=== PATIENT | female | born 1960 | race Caucasian/White ===

== ENCOUNTER 2024-12-23 12:22 | Outpatient (CLI) | payer OTHER, SELFPAY ==
--- NOTE | ~2024-12-23 | CT_ITS ---
CT Scan of the Chest without Contrast: Clinical Indication: Lung cancer screening, nicotine dependence Technique: Contiguous sections were acquired throughout the chest without intravenous contrast. Dose reduction technique was used on this scan by utilizing automated exposure control and iterative recon struction technique. The dose-length product (DLP) was 96.49 mGy-cm. Findings: There is no evidence of any significant mediastinal, hilar or axillary lymphadenopathy. The mediastin al soft tissues appear normal. There is no evidence of pleural or pericardial effusion. The lungs are clear. No pulmonary nodules or infiltrates are noted. Images through the upper abdomen reveal no abnormalities. Impression: Lung RADS 1: Negative. 12 month follow-up screening CT advised. Reviewed, dictated and finalized at location . Impression: Lung RADS 1: Negative. 12 month follow-up screening CT advised.
--- OUTSIDE RECORDS SUMMARY | 2024-12-23 13:43 | XMS_ITS | Encounter Summary ---
Author Organization [facility] Address [address] [place] [address] Phone Care Team Providers Care Director Of Volunteer Services Name Role Phone Ismael Nettles MD Primary Care Provider Jo Lorenzo NP Primary Care Provider [phone] Ismael Nettles MD Primary Care Provider [phone] Jo Lorenzo NP Primary Care Provider [phone] Encounter Details Date Type Department Care Team (Late st Contact Info) Description 10/09/2017 Orders Only [facility] ProviderYenni MD [address] [place] [address] Social History Tobacco Use Types Packs/Day Years Used Date Smoking Tobacco: Heavy Smoker Smokeless Tobacco: Never Comments:Smoking History Pac ks/day: 10 Cigarettes Alcohol Use Standard Drinks/Week Comments No 0 (1 standard drink = 0.6 oz pur e alcohol) Comments Unknown Sex and Gender Information Value Date Recorded Sex Assigned at Not on file Legal Sex Female 3:40 PM CERTIFIED MEDICAL TECHNICIAN Gender Identity Not on file Sexual Orientation Not on file documented as of this encounter Plan of Treatment Not on file documented as of this encounter Procedures Procedure Name Priority Date/Time Associated Diagnosis Comments DISCHARGE LABORATORY CUMULATIVE REPORT 10/09/2017 12:00 AM CERTIFIED MEDICAL TECHNICIAN documented in this encounter Results * DISCHARGE LABORATORY CUMULATIVE REPORT (10/09/2017 12:00 AM CERTIFIED MEDICAL TECHNICIAN) Narrative 10/09/2017 12:00 AM CERTIFIED MEDICAL TECHNICIAN Ordered by an unspecified provider. us Historical Provider LAB BLOOD ORDERABLES Dennise l Result documented in this encounter Visit Diagnoses Not on filedocumented in this encounter Care Teams Director Of Volunteer Services Relationship Specialty Start Date End Date Ismael Nettles MD PCP - General 02/29/12 10/15/18 Jo Lorenzo COMPRESSED GAS TESTER PCP - General Family Medicine 10/16/18 02/16/19 Ismael Nettles MD PCP - General 02/17/19 05/26/19 Jo Lorenzo NP PCP - General Family Medicine 05/27/19 documented as of this encounter
--- OUTSIDE RECORDS SUMMARY | 2024-12-23 13:43 | XMS_ITS | Referral Summary ---
Author Organization [facility] Address [address] [place] [address] Care Team Providers Care Beauty Culture Teacher Name Role Phone Jo Lorenzo NP Primary Care Provider [phone] Allergies No known active allergies Medications comp.quinton sheldon,addie,[facility] As directed 1 each 07/29/2018 Active albuterol (ProAir RespiClick) 90 mcg/actuation inhaler Inhale 2 puffs every 4 (four) hours as needed (shortness of breath) 1 each 1 11/02/2020 Active Symbicort 160-4.5 mcg/actuation inhaler Inhale 2 puffs 2 (two) times a day Rinse mouth with water after use. Do not swallow. 1 Inhaler 1 12/29/2020 Active Active Problems Problem Noted Date Diagnosed Date Elevated blood pressure read ing in office without diagnosis of hypertension 11/02/2020 Assessment & Plan (11/02/2020 3:08 PM CHIEF MECHANICAL ENGINEER): I encouraged her to buy a home blood pressure cuff. Will have her return in 2 months for recheck on blood pressure. Labs as ordered Annual physical exam 11/02/2020 Assessment & Plan (11/02/2020 3:13 PM CHIEF MECHANICAL ENGINEER): -Recommended: Healthy diet. Avoiding junk food/fast food. -30 minutes of exercise most days of the week. Increase to 45 minutes for weight loss. Immunizations: Recommended tdap lose weight, increase physical activity, bring BP log to office visit, continue present plan, routine labs ordered, call if any problems Follow-up in 2 months. Left flank mass 09/04/2019 Overview (11/02/2020): Benign- opted not to have surgery Assessment & Plan (09/04/2019 3:36 PM CHIEF MECHANICAL ENGINEER): Likely lipoma, due to size and length of time we will obtain imaging rule out sarcoma. Will call with imaging results and recommendations. Patient agrees to treatment plan. Spider varicose veins 07/29/2018 Mixed hyperlipidemia 06/05/2018 Assessment & Plan (11/02/2020 3:10 PM CHIEF MECHANICAL ENGINEER): Lipid abnormalities are stable, reviewed previous lipid levels in [facility]. Pharmacotherapy as ordered. Order for lipid panel was given today to be obtained. Pt voiced understanding of lab drawn and continuation of current medication regimen. Assessment & Plan (02/17/2019 8:50 AM CDT): Lipid abnormalities are unchanged. Lipid-lowering therapy was not prescribed due to diet controlled. Lipids will be reassessed in 1 year. Assessment & Plan (08/19/2018 7:42 AM CHIEF MECHANICAL ENGINEER): Recheck lipid panel in 6 months with f/u Assessment & Plan (06/05/2018 12:03 PM CDT): Lipid abnormalities are unchanged. Lipid-lowering therapy was not prescribed due to pt did not continue treatment. Lipids will be reassessed order given today. Chronic obstructive pulmonary disease 02/28/2014 Overview (01/17/2017): COPD (chronic obstructive pulmonary disease) Assessment & Plan (11/02/2020 3:08 PM CHIEF MECHANICAL ENGINEER): Stable. Doing well with Symbicort daily. Does not have to use albuterol very often. However we have never had a pulmonary function test on her. Will order pulmonary function test. She is going to try to get [facility] at [facility] Assessment & Plan (02/17/2019 8:52 AM CDT): COPD is unchanged. Discussed monitoring symptoms and use of quick-relief medications and contacting us early in the course of exacerbations. Warning signs of respiratory distress were reviewed with the patient. Continue current medications. Assessment & Plan (06/05/2018 12:04 PM CDT): COPD is improving with treatment. Discussed monitoring symptoms and use of quick-relief medications and contacting us early in the course of exacerbations. Continue current medications. Follow up in 6 month, or sooner should new symptoms or problems arise. Tobacco dependence syndrome 02/28/2014 Overview (01/18/2017): Tobacco abuse Assessment & Plan (11/02/2020 3:01 PM CHIEF MECHANICAL ENGINEER): Smokes 6 cigarettes/day x 40 years Assessment & Plan (09/27/2018 2:00 PM CHIEF MECHANICAL ENGINEER): Tobacco use is unchanged. Smoking cessation counseling was provided. Tobacco use will be reassessed at the next regular appointment. Resolved Problems Problem Noted Date Diagnosed Date Resolved Date Pap smear for cervical cancer screening 08/30/2019 11/02/2020 Assessment & Plan (08/30/2019 7:29 AM CHIEF MECHANICAL ENGINEER): Normal female exam: -Pap smear every .5 -Influenza vaccine every year -F/u in 1 year for physical or sooner if needed -Mammogram: normal--routine follow-up in 12 months General Recommendations: -Healthy, low fat diet. Avoiding junk food/fast food. -30 minutes of exercise most days of the week. Increase to 45 minutes for weight loss. Encounter for screening colonoscopy 02/24/2019 11/02/2020 Overview (02/24/2019): Added automatically from request for surgery [id number] Colon cancer screening 10/22/201811/02 Assessment & Plan (10/22/2018 3:53 PM CHIEF MECHANICAL ENGINEER): She talked to her insurance and they recommended colonoscopy over cologuard due to fact that if cologuard was positive, then coverage for colonoscopy would not be as good. Referral given Hot flashes due to menopause 10/22/2018 11/02/2020 Assessment & Plan (02/17/2019 8:51 AM CDT): Had some improvement with effexor. Wants to restart it. Assessment & Plan (10/22/2018 3:52 PM CHIEF MECHANICAL ENGINEER): She smokes. Not a candidate for oral hormones. Discussed trying effexor. discussed medication, side effects and usage. Will start at lower dosage of 37.5mg daily. She has f/u scheduled in February. Call for refills. Consider increase in dosage if needed. Acute cystitis with hematuria 09/27/2018 02/17/2019 Assessment & Plan (10/22/2018 3:50 PM CHIEF MECHANICAL ENGINEER): Symptoms have now resolved. Urine dip today shows no protein. Trace of hemolyzed blood. Reassurance given. Assessment & Plan (09/27/2018 11:29 AM CHIEF MECHANICAL ENGINEER): Complete antibiotic as prescribed Do not hold your urine. Urinate as soon as you feel the need to go Drink plenty of water and fluids. Limit alcohol, caffeine, and citrus juices- They will irritate the bladder Wipe front to back & wear cotton underwear Try emptying your bladder before and after having sexual intercourse Follow up with your PCP if you are not getting better For recurrent Urinary tract infections: UTI prevention strategies including use of vaginal estrogen(if postmenopausal) , Vitamin C supplementation,cranberry tablet supplementation, voiding after intercourse, scheduled voiding every 2-3 hours, and antibiotic suppression. If you have severe back, flank, or groin pain with nausea/vomiting or are unable to get comfortable from the pain, please go to ER for further treatment Tylenol/Motrin for pain Neuropathy of left lower extremity 07/29/2018 02/17/2019 Assessment & Plan (08/19/2018 7:42 AM CHIEF MECHANICAL ENGINEER): Improving with gabapentin. I renewed meloxicam, but told her to try to take them prn, not daily. Assessment & Plan (07/30/2018 8:53 AM CDT): Described as pins and needles and is in one area, not entire leg. Will treat for neuropathy with gabapentin. Differential includes claudication/ PAD. Ordered YOLI's as well. Discussed with Dr. Quintanilla who recommended we consider platel. Will see results of YOLI's and how she does on gabapentin and consider platel. Also recommended compression stockings to patient. Ingrown nail of great toe of left foot 06/05/2018 02/17/2019 Assessment & Plan (06/05/2018 10:49 AM CDT): Refer to podiatry [place] [facility] 06/05/2018 11/02/2020 Assessment & Plan (06/05/2018 10:49 AM CDT): Refer to podiatry for treatment Abnormal glucose level 05/01/201611/02 Overview (01/18/2017): Abnormal glucose level Acute bronchitis 12/01/2014 07/18/2017 Overview (01/18/2017): Acute bronchitis Immunizations Immunization Administration Dates Next Due Influenza, Split 11/01/2012 Influenza, Unspecified 11/02/2020(Deferred: Lizy ent Refused) Pneumococcal Polysaccharide PPV23 07/12/2016, ZOSTER LIVE 11/25/2018 ZOSTER Recombinant 03/03/2019 Social History Tobacco Use Types Packs/Day Years Used Date Smoking Tobacco: Heavy Smoker Cigarettes 0.5 42.2 Started: 1982 Smokeless Tobacco: Never Tobacco Cessation:Ready to Q uit: No; Counseling Given: No Comments:Smoking History Packs/day: 10 Cigarettes Alcohol Use Standard Drinks/Week Comments Yes 0 (1 standard drink = 0.6 oz pur e alcohol) rarely PHQ-2 Answer Date Recorded PHQ-2 Total Score (If total score is 3 or more points, staff should administer the PHQ-9) 0 11/02/2020 Personal Safety Answer Date Recorded Getting School Help Needed Not on file 12/28 Comments No Sex and Gender Information Value Date Recorded Sex Assigned at Not on file Legal Sex Female 3:40 PM CHIEF MECHANICAL ENGINEER Gender Identity Not on file Sexual Orientation Not on file Last Filed Vital Signs Vital Sign Reading Time Taken Comments Blood Pressure 142/89 11/02/2020 2:32 PM CHIEF MECHANICAL ENGINEER Pulse 82 11/02/2020 2:30 PM CHIEF MECHANICAL ENGINEER Temperature 36 C (96.8 F) 11/02/2020 2:30 PM CHIEF MECHANICAL ENGINEER Respiratory Rate 17 03/18/2019 9:38 AM CDT Oxygen Saturation 96% 11/02/2020 2:30 PM CHIEF MECHANICAL ENGINEER Inhaled Oxygen Concentration - - Weight 99.7 kg (219 lb 14.4 oz) 11/02/2020 2:30 PM CHIEF MECHANICAL ENGINEER Height 165.1 cm (5' 5 ) 11/02/2020 2:30 PM CHIEF MECHANICAL ENGINEER Body Mass Index 36.59 11/02/2020 2:30 PM CHIEF MECHANICAL ENGINEER Plan of Treatment Not on file Advance Directives For more information, please contact: [phone] * Full Code (Latest Code Status on File) Date Activated Date Inactivated Comments 03/18/2019 7:54 AM 03/18/2019 1:53 PM * Full Code Date Activated Date Inactivated Comments 03/18/2019 7:54 AM 03/18/2019 7:54 AM Care Teams Beauty Culture Teacher Relationship Specialty Start Date End Date Jo Lorenzo NP PCP - General Family Medicine 05/27/19
--- OUTSIDE RECORDS SUMMARY | 2024-12-23 13:43 | XMS_ITS | Clinical Summary ---
Author Organization [facility] Address [address] [place] [address] Care Team Providers Care Restaurant Crew Name Role Phone Jo Lorenzo NP Primary Care Provider [phone] Allergies No known active allergies Medications comp.quinton sheldon,addie,[facility] As directed 1 each 07/29/2018 Active albuterol [...] 11/02/2020 Assessment & Plan (11/02/2020 3:08 PM ACTIVE DIRECTORY SPECIALIST): I encouraged her to buy a home blood pressure cuff. Will have her return in 2 months for recheck on blood pressure. Labs as ordered Annual physical exam 11/02/2020 Assessment & Plan (11/02/2020 3:13 PM ACTIVE DIRECTORY SPECIALIST): -Recommended: Healthy diet. Avoiding junk food/fast food. [...] surgery Assessment & Plan (09/04/2019 3:36 PM ACTIVE DIRECTORY SPECIALIST): Likely lipoma, due to size and length of time we will obtain imaging rule out sarcoma. Will call with imaging results and recommendations. Patient agrees to treatment plan. Spider varicose veins 07/29/2018 Mixed hyperlipidemia 06/05/2018 Assessment & Plan (11/02/2020 3:10 PM ACTIVE DIRECTORY SPECIALIST): Lipid abnormalities are stable, reviewed previous lipid levels in [facility]. Pharmacotherapy as ordered. Order for lipid panel was given today to be obtained. Pt voiced understanding of lab drawn and continuation of current medication regimen. Assessment & Plan (02/17/2019 8:50 AM CDT): Lipid abnormalities are unchanged. Lipid-lowering therapy was not prescribed due to diet controlled. Lipids will be reassessed in 1 year. Assessment & Plan (08/19/2018 7:42 AM ACTIVE DIRECTORY SPECIALIST): Recheck lipid panel in 6 months with f/u Assessment & Plan (06/05/2018 12:03 PM CDT): Lipid abnormalities are unchanged. Lipid-lowering therapy was not prescribed due to pt did not continue treatment. Lipids will be reassessed order given today. Chronic obstructive pulmonary disease 02/28/2014 Overview (01/17/2017): COPD (chronic obstructive pulmonary disease) Assessment & Plan (11/02/2020 3:08 PM ACTIVE DIRECTORY SPECIALIST): Stable. Doing well with Symbicort daily. Does not have to use albuterol very often. However we have never had a pulmonary function test on her. Will order pulmonary function test. She is going to try to get this done at [facility] Assessment & Plan (02/17/2019 8:52 AM [...] abuse Assessment & Plan (11/02/2020 3:01 PM ACTIVE DIRECTORY SPECIALIST): Smokes 6 cigarettes/day x 40 years Assessment & Plan (09/27/2018 2:00 PM ACTIVE DIRECTORY SPECIALIST): Tobacco use is unchanged. Smoking cessation counseling was provided. Tobacco use will be reassessed at the next regular appointment. Resolved Problems Problem Noted Date Diagnosed Date Resolved Date Pap smear for cervical cancer screening 08/30/2019 11/02/2020 Assessment & Plan (08/30/2019 7:29 AM ACTIVE DIRECTORY SPECIALIST): Normal female exam: -Pap smear every .5 [...] (02/24/2019): Added automatically from request for surgery [id number] Colon cancer screening 10/22/201811/02 Assessment & Plan (10/22/2018 3:53 PM ACTIVE DIRECTORY SPECIALIST): She talked to her insurance and they recommended colonoscopy over cologuard due to fact that if cologuard was positive, then coverage for colonoscopy would not be as good. Referral given Hot flashes due to menopause 10/22/2018 11/02/2020 Assessment & Plan (02/17/2019 8:51 AM CDT): Had some improvement with effexor. Wants to restart it. Assessment & Plan (10/22/2018 3:52 PM ACTIVE DIRECTORY SPECIALIST): She smokes. Not a candidate for oral hormones. Discussed trying effexor. discussed medication, side effects and usage. Will start at lower dosage of 37.5mg daily. She has f/u scheduled in February. Call for refills. Consider increase in dosage if needed. Acute cystitis with hematuria 09/27/2018 02/17/2019 Assessment & Plan (10/22/2018 3:50 PM ACTIVE DIRECTORY SPECIALIST): Symptoms have now resolved. Urine dip today shows no protein. Trace of hemolyzed blood. Reassurance given. Assessment & Plan (09/27/2018 11:29 AM ACTIVE DIRECTORY SPECIALIST): Complete antibiotic as prescribed Do not hold [...] 02/17/2019 Assessment & Plan (08/19/2018 7:42 AM ACTIVE DIRECTORY SPECIALIST): Improving with gabapentin. I renewed meloxicam, but [...] (06/05/2018 10:49 AM CDT): Refer to podiatry [place] [facility] 06/05/2018 11/02/2020 Assessment & Plan (06/05/2018 10:49 AM CDT): Refer to podiatry for treatment Abnormal glucose level 05/01/201611/02 Overview (01/18/2017): Abnormal glucose level Acute bronchitis 12/01/2014 07/18/2017 Overview (01/18/2017): Acute bronchitis Immunizations Immunization Administration Dates Next Due Influenza, Split 11/01/2012 Influenza, Unspecified 11/02/2020(Deferred: Lizy ent Refused) Pneumococcal Polysaccharide PPV23 07/12/2016, ZOSTER LIVE 11/25/2018 ZOSTER Recombinant 03/03/2019 Surgical History Surgery Date Site/Laterality Comments TONSILLECTOMY child ROTATOR CUFF REPAIR 10/15/2000 - 10/14/2001 Right Torn rotator cuff: shoulder surgery Medical History Medical History Date Comments Hx Other Medical bronchitis, hyp oxia Chronic obstructive pulmonar y disease (HCC) COPD Rotator cuff syndrome Torn rotat or cuff; Comments: SAB 02/08/2016 - Smoking Family History Medical History Relation Name Comments Heart failure Mother Congestive hea rt failure; Obesity Mother Obesity; Rheum arthritis Other Family histo ry of Rheumatoid arthritis; Diabetes Sister 2 Diabetes mellit us; Stroke Sister 3 Stroke; Cause o f : Stroke COPD Sister 4 COPD; Relation Name Status Comments Mother Other Sister 1 (Age 49) Sister 2 Sister 3 Sister 4 Social History Tobacco Use Types Packs/Day Years [...] on file Legal Sex Female 3:40 PM ACTIVE DIRECTORY SPECIALIST Gender Identity Not on file Sexual Orientation Not on file Obstetrics History Para Term AB IAB SAB Ectopic Multiple Livin g Live Births 2 1 1 Date Outcome GA Total Labor Labor/2nd/3rd Weight Sex Type Anes PTL Rose Marie A1 A5 Name Clin Term Last Filed Vital Signs Vital Sign Reading Time Taken Comments Blood Pressure 142/89 11/02/2020 2:32 PM ACTIVE DIRECTORY SPECIALIST Pulse 82 11/02/2020 2:30 PM ACTIVE DIRECTORY SPECIALIST Temperature 36 C (96.8 F) 11/02/2020 2:30 PM ACTIVE DIRECTORY SPECIALIST Respiratory Rate 17 03/18/2019 9:38 AM CDT Oxygen Saturation 96% 11/02/2020 2:30 PM ACTIVE DIRECTORY SPECIALIST Inhaled Oxygen Concentration - - Weight 99.7 kg (219 lb 14.4 oz) 11/02/2020 2:30 PM ACTIVE DIRECTORY SPECIALIST Height 165.1 cm (5' 5 ) 11/02/2020 2:30 PM ACTIVE DIRECTORY SPECIALIST Body Mass Index 36.59 11/02/2020 2:30 PM ACTIVE DIRECTORY SPECIALIST Plan of Treatment Not on file Advance Directives For more information, please contact: [phone] * Full Code (Latest Code Status on File) Date Activated Date Inactivated Comments 03/18/2019 7:54 AM 03/18/2019 1:53 PM * Full Code Date Activated Date Inactivated Comments 03/18/2019 7:54 AM 03/18/2019 7:54 AM Care Teams Restaurant Crew Relationship Specialty Start Date End Date Jo Lorenzo NP PCP - General Family Medicine 05/27/19
--- OUTSIDE RECORDS SUMMARY | 2024-12-23 13:43 | XMS_ITS | Clinical Summary ---
Author Organization [facility] Address [address] [place], [place] [id number] Care Team Providers Care Sintering Plant Supervisor Name Role Phone Tiff Garcia PA-C Primary Care Provider [phone] Immunizations Name Administration Dates Next Due Influenza Adult (Generic) 07/27/2021 PFIZER COVID-19 (ORIGINAL FO RMULATION, PURPLE CAP) mRNA, LNP-S, PF, 30 MCG/0.3 ML DOSE 07/21/2021,12/02/2020,11/11/2020 PFIZER COVID-19 BIVALENT (12 +) mRNA, LNP-S, PF, 30 MCG/0.3 ML DOSE 07/12/2022 Pneumococcal (Pneumovax 23) 07/12/2016 Shingrix 03/03/2019,11/25/2018 Social History Tobacco Use Types Packs/Day Years Used Date Smoking Tobacco: Never Assessed Comments Unknown Sex and Gender Information Value Date Recorded Sex Assigned at Not on file Legal Sex Female 12:44 PM CDT Gender Identity Not on file Sexual Orientation Not on file Plan of Treatment Health Maintenance Due Date Last Done Comments Colorectal Cancer Screening Colonoscopy (10 Years) 1958 Hepatitis C 1976 DTaP, Tdap and Td Vaccines (1 - Tdap) 1977 Mammogram Screening 1998 Annual Medicare Wellness Visit 2023 Dexa Scan (General) 2023 Pneumococcal Vaccine: 65+ Years (2 of 2 - PCV) 2023 07/12/2016 COVID-19 Vaccine (5 - season) 2024 07/12/2022, 07/21/2021, 12/02/2020, Additional history exists Influenza Adult (#1) 2024 07/27/2021 PHQ-2 (Physician [place]) 10/15/2024 RSV Immunization or 60+ Years (1 - 1-dose 75+ series) 2033 Zoster Vaccines Completed 03/03/2019, 11/25/2018 Meningococcal B Vaccine Aged Out No l onger eligible based on patient's age to complete this topic Meningococcal Vaccine Aged Out No nelia rossy eligible based on patient's age to complete this topic RSV Immunizations Under 20 Months Aged Out No longer eligible based on patient's age to complete this topic Insurance ESSENCE Care Teams Sintering Plant Supervisor Relationship Specialty Start Date End Date Tiff Garcia PA-C [id number] [address] PCP - General PHYSICIAN SKIVING MACHINE OPERATOR 05/21/23
== END 2024-12-23 12:23 | disposition home or self-care (01) ==
PROVIDERS: PCP Physician Assistant Medical; Visit Provider Physician Assistant Medical
DX: Z12.2 Encounter for screening for malignant neoplasm of respiratory organs (principal); Z87.891 Personal history of nicotine dependence
CPT/HCPCS: 71271

== ENCOUNTER 2025-05-12 08:27 | Outpatient (CLI) | payer OTHER, SELFPAY ==
--- NOTE | ~2025-05-12 | MM_ITS ---
EXAMINATION: MM screening angel BI w frida HISTORY: Screening TECHNIQUE: Craniocaudal and mediolateral oblique 3-D tomosynthesis images were obtained and synthetic 2-D images were generated. CAD analysis was submitted and interpreted. COMPARISON: No prior mammogram is available for comparison at this institution. BREAST PARENCHYMAL COMPOSITION: Not dense: There are scattered areas of fibroglandular density. FINDINGS: There are intramammary lymph nodes of the left breast. There is no evidence of suspicious m ass, calcification, or architectural distortion to suggest malignancy in either breast. There has bee n no suspicious interval change. IMPRESSION: 1. No mammographic evidence of malignancy. 2. Recommend routine screening mammography in one year. BI-RADS Category 2: Benign finding(s). Reviewed, dictated and finalized at location []
--- OUTSIDE RECORDS SUMMARY | 2025-05-12 08:34 | XMS_ITS | Referral Summary ---
[facility] Organization [facility] Address [address] [place] [address] Care Team Providers Care Newspaper Carrier Name Role Phone Jo Lorenzo NP Primary Care Provider [phone] Allergies No known active allergies Medications comp.quinton sheldon[place]addie[place] [facility] [place] directed 1 each 07/29/2018 Active albuterol [...] 11/02/2020 Assessment & Plan (11/02/2020 3:08 PM SHOP HAND): I encouraged her to buy a home blood pressure cuff. Will have her return in 2 months for recheck on blood pressure. Labs as ordered Annual physical exam 11/02/2020 Assessment & Plan (11/02/2020 3:13 PM SHOP HAND): -Recommended: Healthy diet. Avoiding junk food/fast food. [...] surgery Assessment & Plan (09/04/2019 3:36 PM SHOP HAND): Likely lipoma, due to size and length of time we will obtain imaging rule out sarcoma. Will call with imaging results and recommendations. Patient agrees to treatment plan. Spider varicose veins 07/29/2018 Mixed hyperlipidemia 06/05/2018 Assessment & Plan (11/02/2020 3:10 PM SHOP HAND): Lipid abnormalities are stable, reviewed previous lipid levels in [facility]. Pharmacotherapy as ordered. Order for lipid panel was given today to be obtained. Pt voiced understanding of lab drawn and continuation of current medication regimen. Assessment & Plan (02/17/2019 8:50 AM CDT): Lipid abnormalities are unchanged. Lipid-lowering therapy was not prescribed due to diet controlled. Lipids will be reassessed in 1 year. Assessment & Plan (08/19/2018 7:42 AM SHOP HAND): Recheck lipid panel in 6 months with f/u Assessment & Plan (06/05/2018 12:03 PM CDT): Lipid abnormalities are unchanged. Lipid-lowering therapy was not prescribed due to pt did not continue treatment. Lipids will be reassessed order given today. Chronic obstructive pulmonary disease 02/28/2014 Overview (01/17/2017): COPD (chronic obstructive pulmonary disease) Assessment & Plan (11/02/2020 3:08 PM SHOP HAND): Stable. Doing well with Symbicort daily. Does not have to use albuterol very often. However we have never had a pulmonary function test on her. Will order pulmonary function test. She is going to try to get this done at [facility] Assessment & Plan (02/17/2019 8:52 AM [...] abuse Assessment & Plan (11/02/2020 3:01 PM SHOP HAND): Smokes 6 cigarettes/day x 40 years Assessment & Plan (09/27/2018 2:00 PM SHOP HAND): Tobacco use is unchanged. Smoking cessation counseling was provided. Tobacco use will be reassessed at the next regular appointment. Resolved Problems Problem Noted Date Diagnosed Date Resolved Date Pap smear for cervical cancer screening 08/30/2019 11/02/2020 Assessment & Plan (08/30/2019 7:29 AM SHOP HAND): Normal female exam: -Pap smear every .5 [...] (02/24/2019): Added automatically from request for surgery [id number] Colon cancer screening 10/22/201811/02 Assessment & Plan (10/22/2018 3:53 PM SHOP HAND): She talked to her insurance and they recommended colonoscopy over cologuard due to fact that if cologuard was positive, then coverage for colonoscopy would not be as good. Referral given Hot flashes due to menopause 10/22/2018 11/02/2020 Assessment & Plan (02/17/2019 8:51 AM CDT): Had some improvement with effexor. Wants to restart it. Assessment & Plan (10/22/2018 3:52 PM SHOP HAND): She smokes. Not a candidate for oral hormones. Discussed trying effexor. discussed medication, side effects and usage. Will start at lower dosage of 37.5mg daily. She has f/u scheduled in February. Call for refills. Consider increase in dosage if needed. Acute cystitis with hematuria 09/27/2018 02/17/2019 Assessment & Plan (10/22/2018 3:50 PM SHOP HAND): Symptoms have now resolved. Urine dip today shows no protein. Trace of hemolyzed blood. Reassurance given. Assessment & Plan (09/27/2018 11:29 AM SHOP HAND): Complete antibiotic as prescribed Do not hold [...] 02/17/2019 Assessment & Plan (08/19/2018 7:42 AM SHOP HAND): Improving with gabapentin. I renewed meloxicam, but [...] (06/05/2018 10:49 AM CDT): Refer to podiatry [place] [facility] 06/05/2018 11/02/2020 Assessment & Plan [...] Date Smoking Tobacco: Heavy Smoker Cigarettes 0.5 42.6 Started: 1982 Smokeless Tobacco: Never Tobacco Cessation:Ready [...] on file Legal Sex Female 3:40 PM SHOP HAND Gender Identity Not on file Sexual Orientation Not on file Last Filed Vital Signs Vital Sign Reading Time Taken Comments Blood Pressure 142/89 11/02/2020 2:32 PM SHOP HAND Pulse 82 11/02/2020 2:30 PM SHOP HAND Temperature 36 C (96.8 F) 11/02/2020 2:30 PM SHOP HAND Respiratory Rate 17 03/18/2019 9:38 AM CDT Oxygen Saturation 96% 11/02/2020 2:30 PM SHOP HAND Inhaled Oxygen Concentration - - Weight 99.7 kg (219 lb 14.4 oz) 11/02/2020 2:30 PM SHOP HAND Height 165.1 cm (5' 5) 11/02/2020 2:30 PM SHOP HAND Body Mass Index 36.59 11/02/2020 2:30 PM SHOP HAND Plan of Treatment Not on file Advance Directives For more information, please contact: [phone] * Full Code (Latest Code Status on File) Date Activated Date Inactivated Comments 03/18/2019 7:54 AM 03/18/2019 1:53 PM * Full Code Date Activated Date Inactivated Comments 03/18/2019 7:54 AM 03/18/2019 7:54 AM Care Teams Newspaper Carrier Relationship Specialty Start Date End Date Jo Lorenzo NP PCP - General Family Medicine 05/27/19
--- OUTSIDE RECORDS SUMMARY | 2025-05-12 08:34 | XMS_ITS | Clinical Summary ---
[facility] Address [address] [place] [address] Care Team Providers Care Wire Machine Cutter Name Role Phone Jo Lorenzo NP Primary Care Provider [phone] Allergies No known active allergies Medications comp.quinton sheldon,addie,renata [facility] [place] As directed 1 each 07/29/2018 Active albuterol [...] 11/02/2020 Assessment & Plan (11/02/2020 3:08 PM PADDED PRODUCTS FINISHER): I encouraged her to buy a home blood pressure cuff. Will have her return in 2 months for recheck on blood pressure. Labs as ordered Annual physical exam 11/02/2020 Assessment & Plan (11/02/2020 3:13 PM PADDED PRODUCTS FINISHER): -Recommended: Healthy diet. Avoiding junk food/fast food. [...] surgery Assessment & Plan (09/04/2019 3:36 PM PADDED PRODUCTS FINISHER): Likely lipoma, due to size and length of time we will obtain imaging rule out sarcoma. Will call with imaging results and recommendations. Patient agrees to treatment plan. Spider varicose veins 07/29/2018 Mixed hyperlipidemia 06/05/2018 Assessment & Plan (11/02/2020 3:10 PM PADDED PRODUCTS FINISHER): Lipid abnormalities are stable, reviewed previous lipid levels in [facility]. Pharmacotherapy as ordered. Order for lipid panel was given today to be obtained. Pt voiced understanding of lab drawn and continuation of current medication regimen. Assessment & Plan (02/17/2019 8:50 AM CDT): Lipid abnormalities are unchanged. Lipid-lowering therapy was not prescribed due to diet controlled. Lipids will be reassessed in 1 year. Assessment & Plan (08/19/2018 7:42 AM PADDED PRODUCTS FINISHER): Recheck lipid panel in 6 months with f/u Assessment & Plan (06/05/2018 12:03 PM CDT): Lipid abnormalities are unchanged. Lipid-lowering therapy was not prescribed due to pt did not continue treatment. Lipids will be reassessed order given today. Chronic obstructive pulmonary disease 02/28/2014 Overview (01/17/2017): COPD (chronic obstructive pulmonary disease) Assessment & Plan (11/02/2020 3:08 PM PADDED PRODUCTS FINISHER): Stable. Doing well with Symbicort daily. Does not have to use albuterol very often. However we have never had a pulmonary function test on her. Will order pulmonary function test. She is going to try to get this done at [facility] Assessment & Plan (02/17/2019 8:52 AM [...] abuse Assessment & Plan (11/02/2020 3:01 PM PADDED PRODUCTS FINISHER): Smokes 6 cigarettes/day x 40 years Assessment & Plan (09/27/2018 2:00 PM PADDED PRODUCTS FINISHER): Tobacco use is unchanged. Smoking cessation counseling was provided. Tobacco use will be reassessed at the next regular appointment. Resolved Problems Problem Noted Date Diagnosed Date Resolved Date Pap smear for cervical cancer screening 08/30/2019 11/02/2020 Assessment & Plan (08/30/2019 7:29 AM PADDED PRODUCTS FINISHER): Normal female exam: -Pap smear every .5 [...] (02/24/2019): Added automatically from request for surgery [id number] Colon cancer screening 10/22/201811/02 Assessment & Plan (10/22/2018 3:53 PM PADDED PRODUCTS FINISHER): She talked to her insurance and they recommended colonoscopy over cologuard due to fact that if cologuard was positive, then coverage for colonoscopy would not be as good. Referral given Hot flashes due to menopause 10/22/2018 11/02/2020 Assessment & Plan (02/17/2019 8:51 AM CDT): Had some improvement with effexor. Wants to restart it. Assessment & Plan (10/22/2018 3:52 PM PADDED PRODUCTS FINISHER): She smokes. Not a candidate for oral hormones. Discussed trying effexor. discussed medication, side effects and usage. Will start at lower dosage of 37.5mg daily. She has f/u scheduled in February. Call for refills. Consider increase in dosage if needed. Acute cystitis with hematuria 09/27/2018 02/17/2019 Assessment & Plan (10/22/2018 3:50 PM PADDED PRODUCTS FINISHER): Symptoms have now resolved. Urine dip today shows no protein. Trace of hemolyzed blood. Reassurance given. Assessment & Plan (09/27/2018 11:29 AM PADDED PRODUCTS FINISHER): Complete antibiotic as prescribed Do not hold [...] 02/17/2019 Assessment & Plan (08/19/2018 7:42 AM PADDED PRODUCTS FINISHER): Improving with gabapentin. I renewed meloxicam, but [...] (06/05/2018 10:49 AM CDT): Refer to podiatry [place] [facility] 06/05/2018 11/02/2020 Assessment & Plan [...] on file Legal Sex Female 3:40 PM PADDED PRODUCTS FINISHER Gender Identity Not on file Sexual Orientation Not on file Obstetrics History Para Term AB IAB SAB Ectopic Multiple Livin g Live Births 2 1 1 Date Outcome GA Total Labor Labor/2nd/3rd Weight Sex Type Anes PTL Rose Marie A1 A5 Name Clin Term Last Filed Vital Signs Vital Sign Reading Time Taken Comments Blood Pressure 142/89 11/02/2020 2:32 PM PADDED PRODUCTS FINISHER Pulse 82 11/02/2020 2:30 PM PADDED PRODUCTS FINISHER Temperature 36 C (96.8 F) 11/02/2020 2:30 PM PADDED PRODUCTS FINISHER Respiratory Rate 17 03/18/2019 9:38 AM CDT Oxygen Saturation 96% 11/02/2020 2:30 PM PADDED PRODUCTS FINISHER Inhaled Oxygen Concentration - - Weight 99.7 kg (219 lb 14.4 oz) 11/02/2020 2:30 PM PADDED PRODUCTS FINISHER Height 165.1 cm (5' 5) 11/02/2020 2:30 PM PADDED PRODUCTS FINISHER Body Mass Index 36.59 11/02/2020 2:30 PM PADDED PRODUCTS FINISHER Plan of Treatment Not on file Advance Directives For more information, please contact: [phone] * Full Code (Latest Code Status on File) Date Activated Date Inactivated Comments 03/18/2019 7:54 AM 03/18/2019 1:53 PM * Full Code Date Activated Date Inactivated Comments 03/18/2019 7:54 AM 03/18/2019 7:54 AM Care Teams Wire Machine Cutter Relationship Specialty Start Date End Date Jo Lorenzo NP PCP - General Family Medicine 05/27/19
--- OUTSIDE RECORDS SUMMARY | 2025-05-12 08:34 | XMS_ITS | Encounter Summary ---
Author Organization [facility] Address [address] [place] [address] Phone Care Team Providers Care Chronometer Repairer Name Role Phone Ismael Nettles MD Primary Care Provider Jo Lorenzo NP Primary Care Provider [phone] Ismael Nettles MD Primary Care Provider Jo Lorenzo NP Primary Care Provider [phone] Encounter Details Date Type Department Care Team (Late st Contact Info) Description 10/09/2017 Orders Only [facility] ProviderYenni MD [address] [place] [address] Social History Tobacco Use Types Packs/Day Years Used Date Smoking Tobacco: Heavy Smoker Smokeless Tobacco: Never Comments:Smoking History Pac ks/day: 10 Cigarettes Alcohol Use Standard Drinks/Week Comments No 0 (1 standard drink = 0.6 oz pur e alcohol) Comments Unknown Sex and Gender Information Value Date Recorded Sex Assigned at Not on file Legal Sex Female 3:40 PM PLANER HAND Gender Identity Not on file Sexual Orientation Not on file documented as of this encounter Plan of Treatment Not on file documented as of this encounter Procedures Procedure Name Priority Date/Time Associated Diagnosis Comments DISCHARGE LABORATORY CUMULATIVE REPORT 10/09/2017 12:00 AM PLANER HAND documented in this encounter Results * DISCHARGE LABORATORY CUMULATIVE REPORT (10/09/2017 12:00 AM PLANER HAND) Narrative 10/09/2017 12:00 AM PLANER HAND Ordered by an unspecified provider. us Historical Provider LAB BLOOD ORDERABLES Dennise l Result documented in this encounter Visit Diagnoses Not on filedocumented in this encounter Care Teams Chronometer Repairer Relationship Specialty Start Date End Date Ismael Nettles MD PCP - General 02/29/12 10/15/18 Jo Lorenzo ASSISTANT GOLF PROFESSIONAL PCP - General Family Medicine 10/16/18 02/16/19 Ismael Nettles MD PCP - General 02/17/19 05/26/19 Jo Lorenzo NP PCP - General Family Medicine 05/27/19 documented as of this encounter
--- OUTSIDE RECORDS SUMMARY | 2025-05-12 08:34 | XMS_ITS | Clinical Summary ---
Author Organization [facility] Address [facility] [place] [address] Care Team Providers Care Cavalry Officer Name Role Phone Unavailable Primary Care Provider Unavailabl e Immunizations Immunization Administration Dates Next Due Influenza Adult (Generic) [...] (1 - Tdap) 1977 Mammogram Screening 1998 Pneumococcal Vaccine: 50+ Years (2 of 2 - PCV) 07/12/2017 07/12/2016 Annual Medicare Wellness Visit 2023 Dexa Scan (General) 2023 COVID-19 Vaccine ( season) 2024 07/12/2022, 07/21/2021, 12/02/2020, Additional history exists PHQ-2 (Physician [place]) 10/15/2024 RSV Immunization or 60+ Years (1 [...]
== END 2025-05-12 08:28 | disposition home or self-care (01) ==
LOC: ANHIMG 08:28
PROVIDERS: PCP Physician Assistant Medical; Visit Provider Physician Assistant Medical
DX: Z12.31 Encounter for screening mammogram for malignant neoplasm of breast (principal)
CPT/HCPCS: 77063; 77067